=== PATIENT | female | born 1985 | race American Indian/Alaskan Native ===

== ENCOUNTER 2017-01-26 23:53 | Outpatient (CLI) | payer MEDICAID ==
[2017-01-27] MEDS ORDERED: LACTATED RINGERS 1,000 ML IV ONE (00:29)
[2017-01-27 00:42] VITALS: BP 118/58
[2017-01-27 01:30] LABS: Bilirubin,Urine NEG (Negative); Blood,Urine NEG (Negative); Ketones,Urine NEG (Negative); Leukocyte Esterase,Urine NEG (Negative); Mucus,Urine 3+ /HPF; Nitrite,Urine NEG (Negative)
== END 2017-01-27 02:00 | disposition home or self-care (01) ==
LOC: TRG 23:53
PROVIDERS: ATTEND Obstetrics & Gynecology Gynecology
DX: O47.03 False labor before 37 completed weeks of gestation, third trimester (principal); Z3A.36 36 weeks gestation of pregnancy
CPT/HCPCS: 59025; 81001; 82962; 96360; J7120

== ENCOUNTER 2017-03-15 11:43 | Emergency (ER) | payer MEDICAID ==
[2017-03-15 12:46] VITALS: BP 129/86
--- NOTE | 2017-03-15 12:46 | Emergency Department Report ---
Chief Complaint: Nausea/Vomiting/Diarrhea Stated Complaint: NAUSEA AND VOMITING Time Seen by Provider: 03/15/17 12:44 - HPI History of Present Illness: PT c/o pain at her hernia site, n and v for a few days PT states she can not push her hernia back in - ROS Review of Systems: + n/v + abd pain - Exam Physical Exam: pt looks well, non toxic mass noted to abd MSE screening note: Focused history and physical exam performed. Due to findings the following was ordered: labs ED Disposition for MSE Condition: Stable
[2017-03-15 13:12] LABS: Basophils % (Auto) 0.2 % (0.0-1.8); Eosinophils % (Auto) 0.2 % (0.0-4.3); Hematocrit 32.4 % (30.3-42.9); Mean Corpuscular HGB Conc 31 % (30-34); Mean Corpuscular Volume 78 fl (79-97); Platelet Count 382 K/mm3 (140-440); Red Blood Count 4.14 M/mm3 (3.65-5.03); Red Cell Distribution Width 18.6 % (13.2-15.2); White Blood Count 9.9 K/mm3 (4.5-11.0)
[2017-03-15 13:24] LABS: Mean Corpuscular Hemoglobin 24 pg (28-32)
[2017-03-15 13:32] LABS: Alanine Aminotransferase 5 units/L (7-56); Albumin 4.1 g/dL (3.9-5); Albumin/Globulin Ratio 1.1 %; Alkaline Phosphatase 62 units/L (35-129); Anion Gap 19 mmol/L; Blood Urea Nitrogen 10 mg/dL (7-17); Carbon Dioxide 25 mmol/L (22-30); Chloride 103.2 mmol/L (98-107); Glucose 94 mg/dL (65-100); Lipase 10 units/L (13-60); Potassium 4.1 mmol/L (3.6-5.0); Sodium 143 mmol/L (137-145); Total Protein 7.9 g/dL (6.3-8.2)
[2017-03-15 13:48] LABS: Bacteria,Urine 1+ /HPF (Negative); Bilirubin,Urine NEG (Negative); Blood,Urine SM (Negative); Ketones,Urine 80 mg/dL (Negative); Leukocyte Esterase,Urine TR (Negative); Mucus,Urine 3+ /HPF; Nitrite,Urine NEG (Negative)
== END 2017-03-15 14:10 | disposition left against medical advice (07) ==
LOC: ED 11:43
DX: R11.2 Nausea with vomiting, unspecified (principal); Z53.21 Procedure and treatment not carried out due to patient leaving prior to being seen by health care provider
CPT/HCPCS: 36415; 80053; 81001; 83690; 84703; 85025